=== PATIENT | male | born 1980 | race Caucasian/White ===

== ENCOUNTER → 2016-07-13 | Outpatient (CLI) | payer BC ==
[~2016-07-13] MED LIST: GADOBUTROL 10 MMOL/10 ML VIAL IV ONE; HYDR-2672 PO
--- NOTE | 2016-07-13 12:05 | KCIC ---
PROCEDURE HISTORY Pain for a few months with swelling. Pain at the plantar ball of the foot. TECHNIQUE Standard multiplanar sequences before and after 8 cc contrast. COMPARISON None FINDINGS Bone marrow edema within the base of the proximal phalanx of the 3rd toe. STIR images demonstrate no significant marrow edema within the 3rd metatarsal head. There is some focal susceptibility artifact located at the plantar aspect of the 3rd metatarsal head. This could represent something metallic in the soft tissues or at the skin surface. Correlate with x-ray. There is some mild T2 signal and enhancement seen in the soft tissues plantar to the 5th metatarsal. There is also minimal susceptibility artifact here which could account for this signal change, versus some mild focal soft tissue inflammation or contusion. This measures 1 cm diameter. Multiple additional areas of mild susceptibility artifact are identified in the subcutaneous tissues. No discrete soft tissue mass is identified. No organized fluid collection. No significant tendon disruption or tendon sheath fluid. IMPRESSION 1. Bone marrow edema within the base of the proximal 3rd phalanx is nonspecific, consider marrow contusion, stress reaction, reactive edema or inflammatory process. 2. Multiple areas of subcutaneous susceptibility artifact, greatest plantar to the 3rd metatarsal head. Findings could represent artifact from small metallic particles as could be seen with prior surgical intervention or foreign body. Correlation with x-ray could be of benefit. 3. Minimal localized subcutaneous edema and enhancement plantar to the 5th metatarsal shaft, may be exaggerated by artifact but could also indicate a small area of focal inflammation or contusion. Electronically signed by: Ross Smith MD (July 13, 2016 12:03:55)
== END | disposition home or self-care (01) ==
LOC: KCIC MRI 10:37
PROVIDERS: ATTEND Podiatrist Foot & Ankle Surgery
DX: M79.89 Other specified soft tissue disorders (principal)
CPT/HCPCS: 73720; A9585